=== PATIENT | female | born 1970 | race Caucasian/White ===

== ENCOUNTER 2023-11-19 20:11 | Emergency (ER) | payer MEDICARE, MEDICAID | END 2023-11-19 21:15 | disposition home or self-care (01) | LOC: LB.ED 20:11 | DX: M70.51 Other bursitis of knee, right knee (principal); Z79.899 Other long term (current) drug therapy; Z88.1 Allergy status to other antibiotic agents | CPT/HCPCS: 73560-RT; 99283 ==